=== PATIENT | female | born 1955 | race African-American/Black ===

== ENCOUNTER → 2016-07-13 | Outpatient (CLI) | payer BC ==
--- NOTE | 2016-07-13 16:22 | MG ---
HISTORY: SCREENING Comparison: July 13, 2015 FINDINGS: Bilateral CC and MLO projections of the right and left breast were obtained. Heterogeneously dense fibroglandular tissue is seen to be present. No significant architectural distortion, mass or clust ered microcalcifications can be observed to suggest malignancy. No skin thickening or nipple retrac tion is appreciated. No pathological lymphadenopathy can be identified. Benign-appearing calcifica tions scattered throughout the right and left breasts are observed. There are stable benign appearin g nodules bilaterally as well. IMPRESSION: NO RADIOGRAPHIC EVIDENCE OF MALIGNANCY. ACR CATEGORY 2 - benign findings. FOLLOW-UP EXAM 1 YEAR. Diagnostic CAD was utilized and reviewed. * 0 (ZERO) - ASSESSMENT INCOMPLETE; ADDITIONAL IMAGING IS NEEDED. * 1/1 (ONE) - NEGATIVE. * 2/II (TWO) - BENIGN FINDINGS. * 3/III (THREE) - PROBABLY BENIGN FINDING; SHORT INTERVAL FOLLOW-UP SUGGESTED. * 4/IV (FOUR) - SUSPICIOUS ABNORMALITY; BIOPSY SHOULD BE CONSIDERED. * 5/V - HIGHLY SUSPICIOUS OF MALIGNANCY; BIOPSY SHOULD BE PERFORMED. A NEGATIVE X-RAY REPORT SHOULD NOT DELAY BIOPSY IF A DOMINANT OR CLINICALLY SUSPICIOUS MASS IS PRESENT; 4 TO 8 PERCENT OF CANCERS ARE NOT IDENTIFIED BY X-RAY. A NEG ATIVE REPORT MAY REINFORCE THE CLINICAL IMPRESSION. ADENOSIS AND DENSE BREASTS MAY OBSCURE AN UNDER LYING NEOPLASM. Reported By:
== END ==
LOC: RAD 08:59
PROVIDERS: ATTEND Obstetrics & Gynecology Obstetrics
DX: Z12.31 Encounter for screening mammogram for malignant neoplasm of breast (principal)
CPT/HCPCS: 77067

== ENCOUNTER → 2016-08-17 | Outpatient (CLI) | payer BC ==
--- NOTE | 2016-08-17 14:40 | RAD ---
HISTORY: Bilateral shoulder pain Study: Left shoulder three view Comparison: None Findings: The clavicle is intact. AC joint degenerative joint disease is present. The glenohumeral articulati on is normal in its appearance. No acute cortical disruption or dislocation can be identified. The visualized portions of the scapula are unremarkable. In addition, the visualized portions of the l eft hemithorax appear normal. IMPRESSION: AC joint degenerative joint disease Reported By:
== END ==
LOC: RAD 13:50
PROVIDERS: ATTEND Orthopaedic Surgery
DX: M25.512 Pain in left shoulder (principal); M25.511 Pain in right shoulder; M19.012 Primary osteoarthritis, left shoulder
CPT/HCPCS: 73030

== ENCOUNTER → 2016-09-14 | Outpatient (CLI) | payer BC ==
--- NOTE | 2016-09-14 10:30 | RAD ---
Examination: X-rays of the left shoulder. Clinical history: Left shoulder pain, bursitis. Technique: Three views of the left shoulder were obtained. Comparison: 08/17/2016. Findings: No acute fracture, dislocation, or destructive bony lesion is noted. No arthropathy is appreciated at the left shoulder. Degenerative changes are noted in the visualized portion of the spine. No soft tissue abnormality is noted. Impression: 1. No acute fracture or dislocation. Reported By:
== END ==
LOC: RAD 09:29
PROVIDERS: ATTEND Orthopaedic Surgery
DX: M75.52 Bursitis of left shoulder (principal)
CPT/HCPCS: 73030

== ENCOUNTER → 2017-07-04 | Outpatient (CLI) | payer BC | LOC: RAD 08:53 | PROVIDERS: ATTEND Obstetrics & Gynecology Obstetrics | DX: Z12.31 Encounter for screening mammogram for malignant neoplasm of breast (principal) ==